=== PATIENT | female | born 1970 | race Caucasian/White ===

== ENCOUNTER 2019-07-11 14:41 | Outpatient (CLI) | payer MEDICARE ==
--- NOTE | 2019-07-11 15:24 | CT ---
Exam: Sinus CT without contrast HISTORY: Chronic facial pain. Previous sinus surgery. FINDINGS: Visualized brain parenchyma is unremarkable Bilateral ocular lenses are appropriately located. Both globes are intact. Retrobulbar fat is preserv ed. Symmetric attenuation of the optic nerves and ocular rectus muscles. Adequate aeration of the frontal sinuses. There is evidence of bilateral ethmoidectomies (partial on the left and complete on the right). There is adequate aeration of the sphenoid sinuses. Minimal mucosal disease of the left maxillary sinus. There are bilateral uncinectomies. There is no significant narrowing of the right ostium. There is mo derate narrowing of the left ostium probably due to soft tissue attenuation and a small left Rut cell. Patent air channel is still present. The superior turbinate, middle turbinates and inferior turbinates are unremarkable. Intact, midline nasal septum. IMPRESSION: 1. Findings compatible with extensive sinonasal surgery as described above. 2. Narrowing of the left ostium secondary to soft tissue density and a small Rut cell. Small paten t air channel is still noted.
== END 2019-07-11 14:42 | disposition home or self-care (01) ==
LOC: BICCT 14:41
PROVIDERS: ATTEND Specialist
DX: R51 Headache (principal)

== ENCOUNTER 2019-08-21 14:17 | Outpatient (CLI) | payer MEDICARE ==
--- NOTE | 2019-08-21 15:45 | MRI ---
MRI lumbar spine without contrast: 08/21/2019 COMPARISON: None HISTORY: Lumbar disc displacement with back pain TECHNIQUE: Multiplanar multisequence MR imaging of the lumbar spine obtained without contrast FINDINGS: The sagittal STIR imaging demonstrates no focal area of osseous marrow edema. On the basis of 5 lumbar type vertebral bodies, the conus medullaris terminates at the L1 level. T12-L1: Intervertebral disc height and signal intensity within normal limits with no significant cent ral canal or neural foraminal stenosis L1-2: Intervertebral disc height and signal intensity within normal limits with no significant centra l canal or neural foraminal stenosis. L2-3: Intervertebral disc height and signal intensity within normal limits. No significant central ca nal or neural foraminal stenosis. Mild bilateral facet hypertrophy. L3-4: Mild disc desiccation. Mild bilateral facet hypertrophy. No significant central canal or neural foraminal stenosis. L4-5: There is disc space narrowing, disc desiccation, and mild disc bulge. There is a small disc pro trusion in the foraminal and post foraminal region on the left. No significant central canal stenosis. No significant neural foraminal stenosis. L5-S1: There is disc space narrowing and disc desiccation. There is a central annular tear with a sma ll associated central disc protrusion. There is mild facet hypertrophy bilaterally with no significant central canal or neural foraminal stenosis. The imaged retroperitoneal structures demonstrate no acute findings. IMPRESSION: Lower lumbar spine degenerative change as described above.
== END 2019-08-21 14:18 | disposition home or self-care (01) ==
LOC: MRI 14:17
PROVIDERS: ATTEND Specialist
DX: M51.26 Other intervertebral disc displacement, lumbar region (principal); M51.27 Other intervertebral disc displacement, lumbosacral region
CPT/HCPCS: 72148